=== PATIENT | male | born 1955 | race Caucasian/White ===

== ENCOUNTER 2024-12-15 12:04 | Emergency (ER) | payer MEDICARE, SELFPAY ==
[2024-12-15 12:07] VITALS: BP 178/97
[2024-12-15 12:23] LABS: Urine Albumin 3+ (Neg - Trace); Urine Bilirubin Negative (Negative); Urine Character Clear (Clear); Urine Color Yellow; Urine Glucose Negative (Negative); Urine Ketone Negative (Negative); Urine Leukocyte Negative (Negative); Urine Nitrite Negative (Negative); Urine Occult Blood 1+ (Negative); Urine Urobilinogen Negative (Neg - 1+)
[2024-12-15 12:30] LABS: Urine Bacteria Few (Negative); Urine Red Blood Cell 0-2 /HPF (0-2); Urine White Cell 0-2 /HPF (0-5)
[2024-12-15 13:25] LABS: % Basophils 0.4 % (0-2); % Eosinophils 0.4 % (0-6); % Immature Granulocytes 0.3 % (0-0.5); % Lymphocytes 12.6 % (20.5-51.1); % Monocytes 8.5 % (1.7-9.3); % Neutrophils 77.8 % (42.2-75.2); Absolute Lymphocytes 0.9 10^3/uL (1.2-3.4); Absolute Monocytes 0.6 10^3/uL (0.1-0.6); Absolute Neutrophils 5.7 10^3/uL (1.4-6.5); Hematocrit 39.2 % (39.0-52.0); Hemoglobin 14.7 g/dL (13.0-18.0); Mean Corp Hgb Conc. 37.5 g/dL (33.0-37.0); Mean Corpuscular Hgb 30.9 pg (27.0-31.0); Mean Corpuscular Volume 82.5 fL (80.0-94.0); Mean Platelet Volume 9.7 fL (7.4-10.4); Nucleated Red Blood Cells % 0 % (-); Platelet Count 159 10^3/uL (130-400); Red Blood Cell Count 4.75 10^6/uL (4.70-6.10); Red Cell Dist. Width 12.5 % (11.5-14.5); White Blood Cell Count 7.3 10^3/uL (4.8-10.8)
[2024-12-15 13:37] LABS: INR 0.98; PT 13.3 Sec (11.4-14.6)
[2024-12-15 13:38] LABS: APTT 27.4 Sec (23.4-35.0)
[2024-12-15 13:41] LABS: ALT (SGPT) 43 U/L (0-50); AST (SGOT) 34 U/L (17-59); Albumin 4.3 g/dl (3.5-5.0); Alkaline Phosphatase 77 U/L (38-126); Blood Urea Nitrogen 12 mg/dl (9-20); Carbon Dioxide 26 mmol/L (22-30); Chloride 108 mmol/L (98-107); Glucose 176 mg/dl (70-99); Potassium 3.7 mmol/L (3.5-5.1); Sodium 139 mmol/L (135-145); Total Bilirubin 1.7 mg/dl (0.2-1.3); Total Protein 6.5 g/dl (6.3-8.2); eGFR > 60.00
--- NOTE | 2024-12-15 14:02 | ED.GENMED ---
History of Present Illness
<Alejo Pichardo MD - Last Filed: 12/15/24 14:08>
General
Chief Complaint: Abdominal Symptoms
Source: patient
Exam Limitations: none
Time Seen by Provider: 12/15/24 13:00
Nursing documentation reviewed up to this point in time: agreed with
History of Present Illness
History of Present Illness:
Patient presents to ED secondary to 2-day history of bruising noted over right lower abdomen, associated with pain. Patient unsure about trauma. Denies nausea or vomiting. Denies difficulty with urination. Denies change in activities. Denies
taking any blood thinning medications. Denies previous history of similar symptoms.
Review of Systems
<Alejo Pichardo MD - Last Filed: 12/15/24 14:08>
Review of Systems
Allergies reviewed?: Yes
All Other Systems: ROS reviewed and negative except as documented in HPI and ROS
Constitutional: Reports no symptoms
Respiratory: Reports no symptoms
Cardiac: Reports no symptoms
ABD/GI: Reports abdominal pain; Denies vomiting or diarrhea
Musculoskeletal: Reports no symptoms
Skin: Reports other (Abdominal wall bruising)
Neurological: Reports no symptoms; Denies dizzy or weakness
Phy Exam
<Alejo Pichardo MD - Last Filed: 12/15/24 14:08>
Physical Exam
Physical Exam:
Physical Exam
General: no apparent distress, not acutely ill. afebrile
Head: nc/at. eomi
Neck: supple. no meningeal signs.
Abdomen: normal bowel sounds. an approx 5cm x 6cm ecchymosis noted over RLQ with mild tenderness
Neuro: alert and oriented x 3. no focal neurological deficits
Skin: no rash
Psychiatric: well kept. interactive and cooperative
Extremities: no edema. no calf tenderness.
Course
<Alejo Pichardo MD - Last Filed: 12/15/24 14:08>
Orders/Labs/Results
Orders:
Orders
12/15/24 12:17
Urinalysis Reflex To Culture Urgent
Date Specimen was Collected: 12/15/24
Time Specimen was Collected: 12:12
Urine Microscopic Reflex Cult Urgent
12/15/24 13:15
CT Abd/pelvis W Iv Cont Urgent
Comment:
Reason For Exam: Right flank pain w hematoma
12/15/24 13:19
PTT Urgent
Prothrombin Time Urgent
12/15/24 13:20
Complete Blood Count/With Diff Urgent
Comprehensive Metabolic Panel Urgent
Abnormal Lab Results
12/15/24 12/15/24
12:17 13:20
MCHC 37.5 H g/dL
(33.0-37.0)
Absolute Lymphs (auto) 0.9 L 10^3/uL
(1.2-3.4)
Neutrophils % 77.8 H %
(42.2-75.2)
Lymphocytes % 12.6 L %
(20.5-51.1)
Chloride 108 H mmol/L
(98-107)
Glucose 176 H mg/dl
(70-99)
Total Bilirubin 1.7 H mg/dl
(0.2-1.3)
Ur Occult Blood Reflex 1+ A
(Negative)
Urine Bacteria (Reflex) Few A
(Negative)
Urine Albumin (Reflex) 3+ A
(Neg - Trace)
12/15/24 13:20
12/15/24 13:20
Vital Signs
Initial and Last Documented VS:
Initial Vital Signs
Temp Pulse Resp BP Pulse Ox
98.2 F 67 28 178/97 95
12/15/24 12:07 12/15/24 12:07 12/15/24 12:07 12/15/24 12:07 12/15/24 12:07
Last Documented Vital Signs
Temp Pulse Resp BP Pulse Ox
98.2 F 61 16 159/87 98
12/15/24 12:07 12/15/24 17:02 12/15/24 17:02 12/15/24 17:02 12/15/24 17:02
<Raymundo Mark, DO - Last Filed: 12/16/24 06:41>
Orders/Labs/Results
Orders:
Orders
12/15/24 12:17
Urinalysis Reflex To Culture Urgent
Date Specimen was Collected: 12/15/24
Time Specimen was Collected: 12:12
Urine Microscopic Reflex Cult Urgent
12/15/24 13:15
CT Abd/pelvis W Iv Cont Urgent
Comment:
Reason For Exam: Right flank pain w hematoma
12/15/24 13:19
PTT Urgent
Prothrombin Time Urgent
12/15/24 13:20
Complete Blood Count/With Diff Urgent
Comprehensive Metabolic Panel Urgent
Abnormal Lab Results
12/15/24 12/15/24
12:17 13:20
MCHC 37.5 H g/dL
(33.0-37.0)
Absolute Lymphs (auto) 0.9 L 10^3/uL
(1.2-3.4)
Neutrophils % 77.8 H %
(42.2-75.2)
Lymphocytes % 12.6 L %
(20.5-51.1)
Chloride 108 H mmol/L
(98-107)
Glucose 176 H mg/dl
(70-99)
Total Bilirubin 1.7 H mg/dl
(0.2-1.3)
Ur Occult Blood Reflex 1+ A
(Negative)
Urine Bacteria (Reflex) Few A
(Negative)
Urine Albumin (Reflex) 3+ A
(Neg - Trace)
12/15/24 13:20
12/15/24 13:20
Vital Signs
Initial and Last Documented VS:
Initial Vital Signs
Temp Pulse Resp BP Pulse Ox
98.2 F 67 28 178/97 95
12/15/24 12:07 12/15/24 12:07 12/15/24 12:07 12/15/24 12:07 12/15/24 12:07
Last Documented Vital Signs
Temp Pulse Resp BP Pulse Ox
98.2 F 61 16 159/87 98
12/15/24 12:07 12/15/24 17:02 12/15/24 17:02 12/15/24 17:02 12/15/24 17:02
<Raymundo Mark DO - Last Filed: 12/16/24 06:41>
*Critical Care Note
Total Time (30-74mins, 75-104mins- exclusive of procedures): Not Applicable
<Raymundo Mark DO - Last Filed: 12/16/24 06:41>
Update Note
Update Note:
[id number] patient received in signout. Patient presented with ecchymosis to the right abdomen and his family members want him checked out. Patient really offers not much in the way of symptoms. In fact he ate lunch here without difficulty. CAT scan
shows no intra-abdominal process. Labs reviewed and unremarkable. Okay for outpatient follow-up. CAT scan results (printed) given to the patient including incidental
ED Attending Note
<Alejo Pichardo MD - Last Filed: 12/15/24 14:08>
-
Portions of this chart may have been created with voice recognition software.� Occasional wrong word or��sound alike� substitutions may have occurred due to the inherent limitations of voice recognition software.
Discharge Plan
Departure
Patient Disposition: Home (Routine Discharge)
Date of Disposition: 12/15/24
Time of Disposition: 16:58
Patient with high blood pressure during this ER visit?: Yes
Discharge Problem:
Superficial bruising of abdominal wall
Instructions: High blood sugar in adults - ED discharge instructions, Abdominal Pain, BLOOD PRESSURE
Referrals:
Ronny Jeong, DO [Family Provider] -
Activity Restrictions/Additional Instructions:
Please see your doctor in follow-up in the next 1 week. Return immediately for worsening symptoms, abdominal pain, vomiting, fevers or any other concerns.
Interventions
Interventions:
*Risk Screen - Suicide Last Done: 12/15/24 13:09
*General Assessment Last Done: 12/15/24 13:09
*Neglect/Abuse Screening Last Done: 12/15/24 13:09
*ED- Fall Risk Assessment Last Done: 12/15/24 13:09
*ED COVID-19 Vaccine History Last Done: 12/15/24 13:09
*Nursing Disposition Last Done: 12/15/24 17:05
SG-Xthnbf-Khstmlidou Assessment Last Done: 12/15/24 13:09
Discharge Date and Time
Discharge Date/Time: 12/15/24 17:05
Print Language: BARBADIAN
[2024-12-15 14:23] VITALS: BP 158/87
[2024-12-15 17:02] VITALS: BP 159/87
== END 2024-12-15 17:05 | disposition home or self-care (01) ==
LOC: EMR 12:04
PROVIDERS: EMERGENCY PHYSICIAN Emergency Medicine; FAMILY PHYSICIAN Internal Medicine
DX: S30.1XXA Contusion of abdominal wall, initial encounter (principal); X58.XXXA Exposure to other specified factors, initial encounter
CPT/HCPCS: 99284; 74177; 80053; 81003; 81015; 85025; 85610; 85730; Q9967